=== PATIENT | female | born 1995 | race Caucasian/White ===

== ENCOUNTER 2017-05-25 13:53 | Emergency (ER) | payer MEDICAID ==
[2017-05-25 14:21] VITALS: BP 135/89; PULSE 81; RESP 16; TEMP 98; O2SAT 99
--- NOTE | 2017-05-25 15:48 | ED PDOC ---
Upper Extremity Pain/Injury Time Seen by Provider: 05/25/17 14:23 Chief Complaint (Nursing): Upper Extremity Problem/Injury Chief Complaint (Provider): Left hand injury History Per: Patient History/Exam Limitations: no limitations Onset/Duration Of Symptoms: Days (x1 week) Current Symptoms Are (Timing): Still Present Exacerbating Factor(s): Strenuous Use Of Affected Area Additional Complaint(s): Alberta Washburn is a 21 year old female, with no past medical history, who presents to the emergency department complaining of left hand pain after boxing onset for 1 week. Patient reports pain is worse when she tries to make a fist and is right hand dominant. She denies taking any pain meds. No further medical complaints. PMD: Janie Swanson Past Medical History Reviewed: Historical Data, Nursing Documentation, Vital Signs Vital Signs: Last Vital Signs Temp 98.0 F 05/25/17 14:19 Pulse 81 05/25/17 14:19 Resp 16 05/25/17 14:19 BP 135/89 05/25/17 14:19 Pulse Ox 99 05/25/17 14:19 - Surgical History Surgical History: Appendectomy (when 5 years old) - Family History Family History: States: Unknown Family Hx - Social History Current smoker - smoking cessation education provided: No Alcohol: Social Drugs: Denies - Home Medications Home Medications: Ambulatory Orders Medication Instructions Recorded Ciprofloxacin/Ciprofloxa HCl 500 mg PO Q12 #14 tab 11/23/15 [Ciprofloxacin] Dicyclomine [Bentyl] 20 mg PO Q12 PRN #20 tab 11/23/15 Ondansetron ODT [Zofran ODT] 4 mg PO Q6H PRN #16 odt 11/23/15 Ibuprofen [Motrin] 600 mg PO Q6 #20 tab 05/25/17 - Allergies Allergies/Adverse Reactions: Allergies Allergy/AdvReac Type Severity Reaction Status Date / Time No Known Allergies Allergy Verified 11/22/15 23:53 Review of Systems ROS Statement: Except As Marked, All Systems Reviewed And Found Negative Musculoskeletal: Positive for: Hand Pain (left hand. pain worsens when making a fist) Physical Exam - Reviewed Nursing Documentation Reviewed: Yes Vital Signs Reviewed: Yes - Physical Exam Appears: Positive for: Well, Non-toxic, No Acute Distress Head Exam: Positive for: ATRAUMATIC, NORMAL INSPECTION, NORMOCEPHALIC Skin: Positive for: Normal Color, Warm, DRY Eye Exam: Positive for: Normal appearance Respiratory: Positive for: Normal Breath Sounds. Negative for: Respiratory Distress Extremity: Positive for: Tenderness (tender to the web space between 1st and 2nd digit. No edema or ecchymosis) Neurologic/Psych: Positive for: Alert, Oriented - ECG O2 Sat by Pulse Oximetry: 99 (RA) Pulse Ox Interpretation: Normal Medical Decision Making Medical Decision Making: Initial Impression: Initial Plan: --Hand 2 views LT [RAD] --Motrin Tab 600 mg PO --reevaluation XR: NAD, as read by KESHAWN Scribe Attestation: Documented by Roman Stevens, acting as a scribe for Gena MCKINNON. Provider Scribe Attestation: All medical record entries made by the Scribe were at my direction and personally dictated by me. I have reviewed the chart and agree that the record accurately reflects my personal performance of the history, physical exam, medical decision making, and the department course for this patient. I have also personally directed, reviewed, and agree with the discharge instructions and disposition. Disposition - Clinical Impression Clinical Impression: Hand sprain - Patient ED Disposition Is Patient to be Admitted: No - Disposition Disposition: Routine/Home Disposition Time: 16:28 Condition: STABLE Prescriptions: Ibuprofen [Motrin] 600 mg PO Q6 #20 tab Instructions: Hand Sprain (ED) Forms: [facility] ([place]) - POA Present On Arrival: None
--- NOTE | 2017-05-25 17:37 | RAD ---
PROCEDURE: Left Hand Radiographs. HISTORY: pain s/p boxing COMPARISON: None. FINDINGS: BONES: Normal. No fracture. JOINTS: Normal. No osteoarthritic changes. SOFT TISSUES: Normal. OTHER FINDINGS: None. IMPRESSION: Normal left hand radiographs.
== END 2017-05-25 16:09 | disposition home or self-care (01) ==
LOC: H.ER 13:53
DX: S63.92XA Sprain of unspecified part of left wrist and hand, initial encounter (principal); X50.9XXA Other and unspecified overexertion or strenuous movements or postures, initial encounter; Y92.89 Other specified places as the place of occurrence of the external cause